=== PATIENT | female | born 1985 | race Caucasian/White ===

== ENCOUNTER 2017-02-24 14:43 | Emergency (ER) | payer OTHER ==
[2017-02-24 15:04] VITALS: BP 122/79
--- NOTE | 2017-02-24 15:37 | RAD ---
HISTORY: Cough and fever COMPARISONS: January 29, 2009 VIEWS: 2: Frontal dual-energy and lateral views of the chest. FINDINGS: CARDIOMEDIASTINAL SILHOUETTE: The cardiomediastinal silhouette is normal. ASHER: The asher are normal. PLEURA: The costophrenic angles are sharp. No pleural abnormalities are noted. LUNG PARENCHYMA: The lungs are clear. ABDOMEN: The upper abdomen is clear. There is no subphrenic gas. BONES AND SOFT TISSUES: No bone or soft tissue abnormalities are noted. OTHER: None. IMPRESSION: NO ACTIVE CARDIOPULMONARY DISEASE.
--- NOTE | 2017-02-24 16:35 | UC ---
Billy Cox Erika, scribed for Chester Hendrickson MD on 02/24/17 at 1524 . Respiratory Complaint HPI - HPI Summary HPI Summary: Patient is a 31-year-old female presenting to [facility] with a CC of cough. Patient reports that yesterday afternoon, she developed symptoms of fevers, chills, weakness, lightheadedness, sore throat, and decreased appetite. Patient also states chest pain with cough and deep breathing. Cough produces green sputum. Patient reports a Hx pneumonia 5 years ago, and states this feels similar. Patient smokes. PSHx , tubal ligation. - History of Current Complaint Chief Complaint: UCRespiratory Stated Complaint: CONGESTION AND FEVER Time Seen by Provider: 02/24/17 14:58 Hx Obtained From: Patient Hx Last Menstrual Period: 02/14/17 Onset/Duration: Gradual Onset, Lasting Days - 1 day, Still Present Timing: Constant Severity Initially: Mild Severity Currently: Moderate Pain Intensity: 4 Pain Scale Used: 0-10 Numeric Character: Sputum Description: - green Aggravating Factors: Deep Breaths Alleviating Factors: Nothing Associated Signs And Symptoms: Positive: Fever, Chills, URI - Allergies/Home Medications Allergies/Adverse Reactions: Allergies Allergy/AdvReac Type Severity Reaction Status Date / Time No Known Allergies Allergy Verified 09/21/16 13:54 Home Medications: Home Medications Ibuprofen TAB* [Advil TAB*] 600 mg PO PRN 02/24/17 [History] PMH/Surg Hx/FS Hx/Imm Hx Endocrine History Of: Denies: Diabetes, Thyroid Disease Cardiovascular History Of: Denies: Cardiac Disorders, Hypertension Respiratory History Of: Denies: COPD, Asthma GI/ History Of: Denies: Ulcer - Surgical History Surgical History: Yes Surgery Procedure, Year, and Place: C SECTION- 07/2013, [facility], Tubal Ligation - Family History Family History: MRSA in immediate family - Social History Lives: With Family Alcohol Use: None Substance Use Type: None Smoking Status (MU): Light Every Day Tobacco Smoker Type: Cigarettes Amount Used/How Often: < 1/2 ppd Have You Smoked in the Last Year: Yes - Immunization History Most Recent Influenza Vaccination: refused Most Recent Tetanus Shot: 08/28/2013 Most Recent Pneumonia Vaccination: not appl Review of Systems Constitutional: Fever, Chills ENT: Sore Throat Respiratory: Cough Cardiovascular: Chest Pain - with cough Gastrointestinal: Other - decreased appetite Neurological: Weakness, Other - lightheadedness All Other Systems Reviewed And Are Negative: Yes Physical Exam Triage Information Reviewed: Yes Vital Signs: Initial Vital Signs Temp 100.3 F 02/24/17 14:57 Pulse 84 02/24/17 14:57 Resp 18 02/24/17 14:57 BP 122/79 02/24/17 14:57 Pulse Ox 98 02/24/17 14:57 Vital Signs Reviewed: Yes - Additional Comments Vital signs: Reviewed Gen.: Patient is a well-developed and nourished female in no acute distress. Patient is lying comfortably on the stretcher. Head: Normacephalic and atraumatic Eyes: PERRLA, EOMI x2. Ears: Right and Left ear canal and TM WNL Nose and mouth: positive pharyngeal erythema w/o exudate. Positive runny nose. Neck: Supple, no lymphadenopathy, no JVD Lungs: Coarse breath sounds. CVS: S1 & S2 present. No murmurs appreciated. ABDOMEN: Soft, non-tender. No signs of distention. No rebound no guarding, and no masses palpated. Bowel sounds are normal. EXTREMITIES: FROM in all major joints, no edema, no cyanosis or clubbing. NEURO: Alert and oriented x 3. No acute neurological deficits. Speech is normal and follows commands. SKIN: Dry and warm UC Diagnostic Evaluation - Laboratory O2 Sat by Pulse Oximetry: 98 Diagnostic Studies Comment: Positive Influenza A. Negative Influenza B. Negative Rapid Strep. - Radiology Radiology Interpretation Completed By: Radiologist - NO ACTIVE CARDIOPULMONARY DISEASE. Respiratory Course/Dx - Course Course Of Treatment: Patient is a 31-year-old female presenting to [facility] with a CC of cough. Patient reports that yesterday afternoon, she developed symptoms of fevers, chills, weakness, lightheadedness, sore throat, and decreased appetite. Patient also states chest pain with cough and deep breathing. Cough produces green sputum. Patient reports a Hx pneumonia 5 years ago, and states this feels similar. Patient smokes. PSHx , tubal ligation. CXR shows no active disease. Rapid Strep negative. Influenza A positive and B is negative. Patient given prescription for Tamiflu. She was instructed contact precautions, increase with fluid intake. I discussed all the findings and test results with the patient. Patient was instructed to return to the emergency room immediately if any of the symptoms return or worsens. Plan of care was discussed with the patient and understands and agrees. All questions were answered at patient satisfaction. There were no further complaints or concerns. Lung exam before discharge: CTA B/L. Good air exchange. No wheezing or crackles heard. CVS: S1 and S2 present. No murmurs appreciated. Patient is alert and oriented x 3. Patient is hemodynamically stable. 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 Influenza A Discharge - Discharge Plan Condition: Stable Disposition: HOME Prescriptions: Oseltamivir CAP* [Tamiflu CAP*] 75 mg PO BID #10 cap Patient Education Materials: Influenza (ED) Forms: *Work Release Referrals: [facility] [place] [facility]IAN REFERRAL [Outside] Additional Instructions: Please use the physician referral service to find a PCP and follow up. The documentation as recorded by the Billy newell Erika accurately reflects the service I personally performed and the decisions made by , Chester Hendrickson MD.
== END 2017-02-24 16:30 | disposition home or self-care (01) ==
LOC: UCEAST 14:43
DX: J10.1 Influenza due to other identified influenza virus with other respiratory manifestations (principal); F17.210 Nicotine dependence, cigarettes, uncomplicated
CPT/HCPCS: 71020; 87502; 87651; 99212; G0463

== ENCOUNTER 2017-07-12 21:36 | Emergency (ER) | payer MEDICAID ==
[2017-07-12 21:42] VITALS: BP 112/58
[2017-07-12] MEDS ORDERED: Penicillin VK TAB* 250 MG PO ONE ×2 (21:46→21:47)
--- NOTE | 2017-07-12 22:03 | UC ---
Janice Cox Alfonso, scribed for Jamal Jama MD on 07/12/17 at 2151 . Dental HPI - HPI Summary HPI Summary: This patient is a 32 year old F presenting to [facility] with a chief complaint of right sided facial swelling since this morning. She reports a cracked tooth in the upper right. The patient rates the pain 0/10 in severity. Symptoms aggravated by nothing and alleviated by ibuprofen. She denies any PMHx. Patient s medications reviewed this visit. - History of Current Complaint Chief Complaint: UCDentalProblem Stated Complaint: TOOTH PAIN Time Seen by Provider: 07/12/17 21:43 Hx Obtained From: Patient Hx Last Menstrual Period: 06/30/17 Onset/Duration: Sudden Onset, Lasting Hours - This morning, Still Present Severity: Mild Pain Intensity: 0 Pain Scale Used: 0-10 Numeric Aggravating: Other Alleviating: OTC Meds Related History: Swelling - Allergies/Home Medications Allergies/Adverse Reactions: Allergies Allergy/AdvReac Type Severity Reaction Status Date / Time No Known Allergies Allergy Verified 09/21/16 13:54 PMH/Surg Hx/FS Hx/Imm Hx Other Cardiovascular History: No CAD. - Surgical History Surgical History: Yes Surgery Procedure, Year, and Place: C SECTION- 07/2013, [facility], Tubal Ligation - Family History Known Family History: Positive: Other - No cancer Family History: MRSA in immediate family - Social History Alcohol Use: None Substance Use Type: None Smoking Status (MU): Light Every Day Tobacco Smoker Type: Cigarettes Amount Used/How Often: < 1/2 ppd Have You Smoked in the Last Year: Yes - Immunization History Most Recent Influenza Vaccination: refused Most Recent Tetanus Shot: 08/28/2013 Most Recent Pneumonia Vaccination: not appl Review of Systems ENT: Dental Pain - Positive cracked tooth in the upper right. Musculoskeletal: Other: - Positive right sided facial swelling. All Other Systems Reviewed And Are Negative: Yes Physical Exam Triage Information Reviewed: Yes Appearance: Well-Appearing, No Pain Distress Vital Signs: Initial Vital Signs Temp 97.9 F 07/12/17 21:39 Pulse 67 07/12/17 21:39 Resp 18 07/12/17 21:39 BP 112/58 07/12/17 21:39 Pulse Ox 100 07/12/17 21:39 Vital Signs Reviewed: Yes Eye Exam: Normal ENT: Positive: Normal ENT inspection Dental: Positive: Other: - Cracked right upper molar. Dental caries in right lower molars. Neck: Positive: Supple, Nontender Respiratory: Positive: Other: - CTA, breath sounds present. Cardiovascular: Positive: RRR Abdomen Description: Positive: Nontender, Soft Bowel Sounds: Positive: Present Musculoskeletal: Positive: Other: - Swelling of the right check which is tender to palliation. Neurological: Positive: Alert Psychological: Positive: Age Appropriate Behavior Skin: Positive: Other - warm, color reflects adequate perfusion, dry Dental Complaint Course/Dx - Course Course Of Treatment: RX PEN VK 500MG PO QID X 10 DAYS. MEDICATIONS REVIEWED. - Differential Dx/Diagnosis Provider Diagnoses: RIGHT DENTAL ABSCESS Discharge - Discharge Plan Condition: Stable Disposition: HOME Prescriptions: Penicillin VK 500 MG TAB(NF) [Penicillin VK 500 mg Tab] 500 mg PO QID #37 tab Patient Education Materials: Dental Abscess (ED) Referrals: No Primary Care Phys,NOPCP [Primary Care Provider] - Additional Instructions: FOLLOW UP WITH YOUR DENTIST. RETURN TO THE EMERGENCY DEPARTMENT FOR ANY WORSENING OF YOUR CONDITION; PAIN, FEVER, YOU FEEL ILL OR QUESTIONS OR CONCERNS. The documentation as recorded by the Janice newell Alfonso accurately reflects the service I personally performed and the decisions made by me, Jamal Jama MD.
== END 2017-07-12 22:02 | disposition home or self-care (01) ==
LOC: UCEAST 21:36
DX: K04.7 Periapical abscess without sinus (principal); F17.210 Nicotine dependence, cigarettes, uncomplicated
CPT/HCPCS: 99212; A9270-GY; G0463

== ENCOUNTER 2019-01-18 10:37 | Emergency (ER) | payer OTHER ==
--- NOTE | 2019-01-18 10:41 | UC ---
Dental HPI - HPI Summary HPI Summary: 33 yo female presents with right upper tooth pain. She tells me that she was seen her a few days ago for this and was concerned she was developing an abscess as this has happened to her many times in the past. She was placed on amoxicillin which she took yesterday and a dose this morning. Says that the abscess popped this morning and has been draining - pain is much better. Last night began to have some swelling to her cheek and today it was "really bad" upon waking, but has since improved. She is able to eat and drink. Denies fever. - History of Current Complaint Stated Complaint: DENTAL COMPLAINT Time Seen by Provider: 01/18/19 10:41 Hx Obtained From: Patient Hx Last Menstrual Period: Dec 31, 2018 Severity: Mild Pain Intensity: 3 Pain Scale Used: 0-10 Numeric - Allergies/Home Medications Allergies/Adverse Reactions: Allergies Allergy/AdvReac Type Severity Reaction Status Date / Time No Known Allergies Allergy Verified 01/18/19 10:51 Home Medications: Home Medications Amoxicillin PO (*) [Amoxicillin 875 MG (*)] 1 tab PO BID 01/18/19 [History Confirmed 01/18/19] PMH/Surg Hx/FS Hx/Imm Hx - Additional Past Medical History Additional PMH: None - Surgical History Surgical History: Yes Surgery Procedure, Year, and Place: C SECTION- 07/2013, [facility], Tubal Ligation - Family History Known Family History: Positive: Other - No cancer Family History: MRSA in immediate family - Social History Lives: With Family Alcohol Use: None Substance Use Type: None Smoking Status (MU): Light Every Day Tobacco Smoker Type: Cigarettes Amount Used/How Often: < 1/2 ppd Have You Smoked in the Last Year: Yes - Immunization History Most Recent Influenza Vaccination: refused Most Recent Tetanus Shot: 08/28/2013 Most Recent Pneumonia Vaccination: not appl Review of Systems All Other Systems Reviewed And Are Negative: Yes Constitutional: Positive: Negative Skin: Positive: Negative Eyes: Positive: Negative ENT: Positive: Dental Pain Respiratory: Positive: Negative Cardiovascular: Positive: Negative Neurological: Positive: Negative Psychological: Positive: Negative Physical Exam - Summary Physical Exam Summary: GENERAL: NAD. WDWN. No pain distress. SKIN: No rashes, sores, lesions, or open wounds. HEENT: Head: AT/NC Eyes: EOM intact. Conjunctiva clear without inflammation or discharge. Nose: Nasal mucosa pink and moist. Moderate edema overlying right maxillay sinus. NTTP no warmth, erythema, induration, or fluctuance appreciated. Throat: Posterior oropharynx without exudates, erythema, or tonsillar enlargement. Uvula midline. NECK: Supple. Nontender. No lymphadenopathy. CHEST: CTAB. No r/r/w. No accessory muscle use. Breathing comfortably and in no distress. CV: RRR. Without m/r/g. Pulses intact. Cap refill <2seconds NEURO: Alert. PSYCH: Age appropriate behavior. Triage Information Reviewed: Yes Vital Signs: Vital Signs: Temp Pulse Resp BP Pulse Ox 98.5 F 63 18 121/67 98 01/18/19 10:48 01/18/19 10:48 01/18/19 10:48 01/18/19 10:48 01/18/19 10:48 Vital Signs Reviewed: Yes Dental: Positive: Percussion Tenderness @ - Tooth #3, Gross Decay/Caries @ - throughout, Dental Fracture @ - Tooth #3, Abscess @ - Tooth #3 draining. Negative: Cervical Lymphadenopathy, Bleeding Dental Complaint Course/Dx - Course Course Of Treatment: Tooth #3 abscess draining and feeling better. Advised to apply ice to her face to reduce pain and swelling. Will switch her from amoxicillin to augmentin for anaerobic coverage and have her return if swelling dose not improve. - Differential Dx/Diagnosis Provider Diagnosis: Dental abscess Discharge - Sign-Out/Discharge Documenting (check all that apply): Patient Departure All imaging exams completed and their final reports reviewed: No Studies - Discharge Plan Condition: Stable Disposition: HOME Prescriptions: Amoxicillin/Clavulanate TAB* [Augmentin TAB 875*] 875 mg PO BID #14 tab Chlorhexidine MW 0.12% 473ML* [Peridex Mouth Wash 0.12%] 15 ml MT BID #1 bottle Patient Education Materials: Dental Abscess (ED) Referrals: No Primary Care Phys,NOPCP [Primary Care Provider] - Additional Instructions: If you develop a fever, shortness of breath, chest pain, new or worsening symptoms - please call your PCP or go to the ED. Stop the Amoxicillin and start AUGMENTIN Apply ice to your face to reduce pain and swelling - Billing Disposition and Condition Condition: STABLE Disposition: Home
[2019-01-18 10:51] VITALS: BP 121/67
== END 2019-01-18 11:01 | disposition home or self-care (01) ==
LOC: UCEAST 10:37
DX: K04.7 Periapical abscess without sinus (principal); F17.210 Nicotine dependence, cigarettes, uncomplicated
CPT/HCPCS: 99212; G0463

== ENCOUNTER 2019-10-14 17:36 | Emergency (ER) | payer OTHER ==
[2019-10-14 17:53] VITALS: BP 180/118
--- NOTE | 2019-10-14 17:57 | UC ---
Dental HPI - HPI Summary HPI Summary: 34-year-old woman comes in with a chief complaint of dental pain. Started couple days ago it's getting worse. Has tried acetaminophen does not help. She does have a decayed tooth at that site. She has arranged a dental appointment for October 18, 2019. No fevers. No drainage. - History of Current Complaint Chief Complaint: UCDentalProblem Stated Complaint: TOOTH PAIN Time Seen by Provider: 10/14/19 17:45 Hx Last Menstrual Period: September 2019 Pain Intensity: 0 - Allergies/Home Medications Allergies/Adverse Reactions: Allergies Allergy/AdvReac Type Severity Reaction Status Date / Time No Known Allergies Allergy Verified 10/14/19 17:50 Home Medications: Home Medications Ibuprofen [Advil] 400 mg PO Q6H PRN 10/14/19 [History Confirmed 10/14/19] PMH/Surg Hx/FS Hx/Imm Hx Previously Healthy: Yes - Surgical History Surgical History: Yes Surgery Procedure, Year, and Place: C SECTION- 07/2013, [facility], Tubal Ligation - Family History Known Family History: Positive: Other - No cancer Family History: MRSA in immediate family - Social History Alcohol Use: None Substance Use Type: None Smoking Status (MU): Light Every Day Tobacco Smoker Type: Cigarettes Amount Used/How Often: < 1/2 ppd Have You Smoked in the Last Year: Yes Household Exposure Type: Cigarettes - Immunization History Most Recent Influenza Vaccination: refused Most Recent Tetanus Shot: 08/28/2013 Most Recent Pneumonia Vaccination: not appl Review of Systems All Other Systems Reviewed And Are Negative: Yes Constitutional: Positive: Other - SEE HPI Skin: Positive: Negative Eyes: Positive: Negative ENT: Positive: Dental Pain Respiratory: Positive: Negative Cardiovascular: Positive: Negative Gastrointestinal: Positive: Negative Motor: Positive: Negative Neurovascular: Positive: Negative Musculoskeletal: Positive: Negative Neurological: Positive: Negative Psychological: Positive: Negative Is Patient Immunocompromised?: No Physical Exam Triage Information Reviewed: Yes Appearance: Well-Appearing, Well-Nourished, Pain Distress - MILD Vital Signs: Initial Vital Signs Temp 98.2 F 10/14/19 17:51 Pulse 65 10/14/19 17:51 Resp 18 10/14/19 17:51 BP 180/118 10/14/19 17:51 Pulse Ox 100 10/14/19 17:51 Vital Signs Reviewed: Yes Eye Exam: Normal Eyes: Positive: Conjunctiva Clear ENT: Positive: Pharynx normal Dental: Positive: Gross Decay/Caries @ - RT UPPER ANTERIOR MOLAR Neck: Positive: Supple Respiratory: Positive: No respiratory distress Musculoskeletal: Positive: Strength Intact, ROM Intact Neurological: Positive: Alert, Muscle Tone Normal Psychological: Positive: Age Appropriate Behavior Skin Exam: Normal Dental Complaint Course/Dx - Differential Dx/Diagnosis Provider Diagnosis: Tooth ache Discharge ED - Sign-Out/Discharge Documenting (check all that apply): Patient Departure All imaging exams completed and their final reports reviewed: No Studies - Discharge Plan Condition: Stable Disposition: HOME Prescriptions: Amoxicillin PO (*) [Amoxicillin 875 MG (*)] 875 mg PO BID #20 tab Naproxen [Naproxen 500 mg tab] 500 mg PO BID PRN #20 tablet PRN Reason: Pain - Moderate Patient Education Materials: Toothache (ED) Referrals: [facility] [place] [facility] REFERR[facility] [Outside] Additional Instructions: FOLLOW UP WITH YOUR DENTIST SCHEDULED, 10/18/19. GET REEVALUATED SOONER IF NOT IMPROVED OR WORSE OR ANY QUESTIONS OR CONCERNS. - Billing Disposition and Condition Condition: STABLE Disposition: Home
== END 2019-10-14 18:04 | disposition home or self-care (01) ==
LOC: UCEAST 17:36
DX: K08.89 Other specified disorders of teeth and supporting structures (principal); K02.9 Dental caries, unspecified; F17.210 Nicotine dependence, cigarettes, uncomplicated
CPT/HCPCS: 99212; G0463

== ENCOUNTER 2019-10-16 15:04 | Emergency (ER) | payer OTHER ==
--- NOTE | 2019-10-16 15:10 | UC ---
[facility] Dental HPI - HPI Summary HPI Summary: Patient is a 34yo female presenting with tooth pain from broken tooth x3 days. Patient states she was seen here 2 days ago and given amoxicillin and naproxen for treatment of her toothache until she is able to follow up with her dentist on 10/18/19. Patient states that her pain has not improved despite taking medications as prescribed. Denies drainage and bleeding. Notes radiating pain across R upper teeth. Denies fever and chills. - History of Current Complaint Stated Complaint: tooth ache Hx Obtained From: Patient Hx Last Menstrual Period: September 2019 Onset/Duration: Gradual Onset, Lasting Days Severity: Moderate Pain Intensity: 7 Pain Scale Used: 0-10 Numeric - Allergies/Home Medications Allergies/Adverse Reactions: Allergies Allergy/AdvReac Type Severity Reaction Status Date / Time No Known Allergies Allergy Verified 10/16/19 15:11 Home Medications: Home Medications Acetaminophen [Tylenol Extra Strength] 1,000 mg PO Q6HR 10/16/19 [History Confirmed 10/16/19] PMH/Surg Hx/FS Hx/Imm Hx - Surgical History Surgical History: Yes Surgery Procedure, Year, and Place: C SECTION- 07/2013, [facility], Tubal Ligation - Family History Known Family History: Positive: Other - No cancer, Non-Contributory Family History: MRSA in immediate family - Social History Alcohol Use: None Substance Use Type: None Smoking Status (MU): Light Every Day Tobacco Smoker Type: Cigarettes Amount Used/How Often: < 1/2 ppd Have You Smoked in the Last Year: Yes Household Exposure Type: Cigarettes - Immunization History Most Recent Influenza Vaccination: refused Most Recent Tetanus Shot: 08/28/2013 Most Recent Pneumonia Vaccination: not appl Review of Systems All Other Systems Reviewed And Are Negative: Yes Constitutional: Positive: Negative. Negative: Fever, Chills ENT: Positive: Dental Pain - R upper molar Respiratory: Positive: Negative Cardiovascular: Positive: Negative Gastrointestinal: Positive: Negative. Negative: Vomiting, Nausea Musculoskeletal: Positive: Negative Neurological: Positive: Negative Physical Exam Triage Information Reviewed: Yes Appearance: Well-Nourished, Pain Distress Vital Signs: Vital Signs (72 hours) 10/16/19 10/16/19 15:06 15:37 Temperature 98.8 F Pulse Rate 80 Respiratory 20 Rate Blood Pressure 182/115 159/93 (mmHg) O2 Sat by Pulse 96 Oximetry Vital Signs Reviewed: Yes Eyes: Positive: Conjunctiva Clear ENT: Positive: Hearing grossly normal, Pharynx normal, TMs normal, Dental tenderness, Uvula midline Dental: Positive: Percussion Tenderness @ - tooth #28, Gross Decay/Caries @ - tooth #28, Dental Fracture @ - tooth #28, Cellulitis @ - R upper gingiva. Negative: Abscess @, Cervical Lymphadenopathy, Bleeding Neck exam: Normal Neck: Positive: Supple, Nontender, No Lymphadenopathy Respiratory Exam: Normal Respiratory: Positive: Lungs clear, Normal breath sounds, No respiratory distress Cardiovascular Exam: Normal Cardiovascular: Positive: RRR Musculoskeletal: Positive: No Edema Neurological: Positive: Alert Psychological: Positive: Age Appropriate Behavior Skin Exam: Normal Dental Complaint Course/Dx - Course Course Of Treatment: I am treating with clindamycin for tooth infection and instructed to stop taking amoxicillin. Instructed to use viscous lidocaine directly on tooth for pain relief. Instructed to continue with other symptomatic treatment as well and to be sure to attend dentist appointment on 10/18/19. Patient voiced understanding and agreed with the treatment plan. - Differential Dx/Diagnosis Provider Diagnosis: Infected dental caries Discharge ED - Sign-Out/Discharge Documenting (check all that apply): Patient Departure All imaging exams completed and their final reports reviewed: No Studies - Discharge Plan Condition: Stable Disposition: HOME Prescriptions: Clindamycin Cap(NF) [Clindamycin Cap 300 mg Cap(NF)] 300 mg PO Q6H #28 cap Lidocaine 2% VISCOUS* [Xylocaine 2% Viscous*] 15 ml .SEE ORDER Q6H PRN #1 btl PRN Reason: Pain - Moderate Patient Education Materials: Toothache (ED) Referrals: [facility] [Outside] [facility] [place] [facility]FERR[facility] [Outside] Additional Instructions: As discussed, take Clindamycin as prescribed and stop taking the amoxicillin. It is recommended that you take probiotics or eat palestinian yogurt while taking this antibiotics to avoid an infectious diarrhea call C. diff. Apply the lidocaine to your tooth with a Q tip every 4 hours as needed for pain relief. Continue with your naproxen as directed for pain relief. Follow up with your dentist appointment as scheduled on 10/18/19. Go to the emergency department if you experience new or worsening symptoms, including increasing pain, fever, nausea and vomiting. - Billing Disposition and Condition Condition: STABLE Disposition: Home - Attestation Statements Provider Attestation: I was available for consult. This patient was seen by the EUGENE. The patient was not presented to, seen by, or examined by me. -
[2019-10-16] MEDS ORDERED: Lidocaine 2% VISCOUS* 15 ML UDC PO ONE (15:37)
[2019-10-16 15:38] VITALS: BP 159/93
== END 2019-10-16 15:55 | disposition home or self-care (01) ==
LOC: UCEAST 15:04
DX: K04.7 Periapical abscess without sinus (principal); F17.210 Nicotine dependence, cigarettes, uncomplicated
CPT/HCPCS: 99212; G0463